=== PATIENT | female | born 1950 | race Caucasian/White ===

== ENCOUNTER → 2016-09-09 | Outpatient (CLI) | payer OTHER, BC ==
[~2016-09-09] MED LIST: ACETAMINOPHEN-1 EAC1 PO; AMANTADINE 100100 M1 PO; ASPIRIN325 PO; AUGMENTIN 875875 MG PO; CARBIDOPA-LEVO1 EAC2 PO; CEPHALEXIN 500500 M3 PO; COLACE100 MG PO; FLEXERIL PO; GABAPENTIN 100100 MG PO; IRON 100 PLUS1 EACH; IRON PO; IRON325 PO; KEFLEX500 MG PO; LASIX 20 MG TAB20 MG PO; LIORESAL 10 MG10 MG PO; LISINOPRIL10 MG PO; LISINOPRIL30 MG PO; MIRAPEX 0.250.25 M1 PO; MIRAPEX1 MG PO; MOBIC15 MG PO; MUCUS ER600 MG PO; NORCO 5-325 TA1 EAC1 PO; NORCO 5-325 TA1 EACH PO; OXYCODONE HCL 55 MG PO; OXYCODONE-APAP1 EAC6 PO; OXYCONTIN10 M1 PO; PERCOCET 7.5-31 EACH PO; PERCOCET PO; POTASSIUM20 PO; PREDNISONE 5 MG5 M1 PO; PREVIDENT 500051 GM PO; PROBIOTIC1 EAC1 PO; PROBIOTIC1 EAC2 PO; SENNA PO; SENNA8.6 M1 PO; SINEMET 25-1001 EAC1 PO; STOOL SOFTENER100 MG PO; TORADOL 10 MG T10 MG PO; VALIUM5 MG PO; VICODIN 5-5001 EACH PO; VITAMIN D35000 UNIT PO
[2016-09-09 13:10] LABS: CREATININE 0.6 mg/dL (0.6-1.0)
== END ==
LOC: MRI 12:21 → LAB 12:32 → MRI 18:46
PROVIDERS: Neurological Surgery
DX: M48.06 Spinal stenosis, lumbar region (principal)